=== PATIENT | female | born 1970 | race Caucasian/White ===

== ENCOUNTER → 2016-09-10 | Outpatient (CLI) | payer OTHER ==
[~2016-09-10] MED LIST: ALBU0.08 NEB; BENZ100 PO; NEXI40CA PO; PRED20 PO; SODI0.9N3 INH; VENTAER INH
[2016-09-10 09:05] LABS: HEMATOCRIT 40.4 % (35.0-46.0); MEAN CELL VOLUME 92.7 FL (80.0-100.0); MEAN CORPUSCULAR HEMOGLOBIN 31.4 PG (27.0-34.0); MEAN CORPUSCULAR HGB CONC 33.9 % (32.0-36.0); PLATELET COUNT 331 TH/MM3 (150-450); RED BLOOD COUNT 4.36 MIL/MM3 (4.00-5.30); REVIEW FLAG FINAL
[2016-09-10 13:32] LABS: ALKALINE PHOSPHATASE 49 U/L (45-117); ALT (GPT) 15 U/L (10-53); ANION GAP 7 MEQ/L (5-15); AST (GOT) 8 U/L (15-37); BICARBONATE 29.5 MEQ/L (21.0-32.0); BLOOD UREA NITROGEN 12 MG/DL (7-18); CHLORIDE 103 MEQ/L (98-107); GLOMERULAR FILTRATION RATE 99 ML/MIN (>89); GLUCOSE,FASTING 99 MG/DL (74-99); POTASSIUM 3.7 MEQ/L (3.5-5.1); SODIUM (NA) 139 MEQ/L (136-145); TOTAL BILIRUBIN ADULT 0.4 MG/DL (0.2-1.0)
== END ==
LOC: OLAB 08:17
PROVIDERS: ATTEND Family Medicine
DX: Z00.00 Encounter for general adult medical examination without abnormal findings (principal)
CPT/HCPCS: 80053; 84443; 85027

== ENCOUNTER 2017-01-02 17:29 | Emergency (ER) | payer OTHER ==
[~2017-01-02] VITALS: Ht 162.6 cm; Wt 47.5 kg
[~2017-01-02 17:29] MED LIST changes: -ALBU0.08 NEB; -BENZ100 PO; -PRED20 PO; -SODI0.9N3 INH; -VENTAER INH
[2017-01-02 17:35] VITALS: BP 148/69; PULSE 84; RESP 20; TEMP 98.7; O2SAT 93
--- NOTE | 2017-01-02 17:37 | PD ---
Physical Exam Date Seen by Provider: January 02, 2017 Time Seen by Provider: 17:35 Narrative Pt is a 46 year old female presenting to the ED with c/o palpitations and SOB, slight dizziness. Hx of SVT. She feels like there is pressure in her chest and her heart is "flipping around" in her chest. VSS, awaiting bed placement. MDM Supervised Visit with CATRACHITA: Concetta Cloud January 02, 2017 17:37
[2017-01-02] MEDS ORDERED: SODIUM CHLORIDE 0.9% FLUSH 10 ML FLUSH IVF PRN (18:30)
[2017-01-02 18:46] LABS: AUTOMATED NEUTROPHIL # 3.1 TH/MM3 (1.8-7.7); BASOPHIL # 0.1 TH/MM3 (0-0.2); BASOPHIL % 1.9 % (0.0-2.0); EOSINOPHIL # 0.1 TH/MM3 (0-0.4); EOSINOPHIL % 1.4 % (0.0-4.0); HEMO FLAGS DIFF FINAL; LYMPHOCYTE # 2.1 TH/MM3 (1.0-4.8); MEAN CELL VOLUME 94.3 FL (80.0-100.0); MEAN CORPUSCULAR HEMOGLOBIN 31.5 PG (27.0-34.0); MEAN CORPUSCULAR HGB CONC 33.4 % (32.0-36.0); MONO % 9.8 % (0.0-8.0); NEUT % 51.9 % (16.0-70.0); PLATELET COUNT 344 TH/MM3 (150-450); RED BLOOD COUNT 4.25 MIL/MM3 (4.00-5.30); RED CELL DISTRIBUTION WIDTH 13.3 % (11.6-17.2)
--- NOTE | 2017-01-02 18:47 | RADRPT ---
EXAM DATE/TIME: 01/02/2017 18:36 [place] COMPARISON: No previous studies available for comparison. INDICATIONS : Palpitations. MEDICAL HISTORY : None. SURGICAL HISTORY : Left thoracotomy. ENCOUNTER: Initial ACUITY: 1 day PAIN SCORE: 0/10 LOCATION: Bilateral chest FINDINGS: Mild scarring in the left lung base. There are some surgical clips in the left hilar region and sligh t superior retraction of the hilum. No evidence of focal infiltrate or effusion. Cardiac contours are satisfactory. Thoracic skeleton is intact. CONCLUSION: Previous left lung surgery. No acute disease. Supa Valenzuela MD on January 02, 2017 at 18:43 Board Certified Radiologist. This report was verified electronically.
[2017-01-02 19:16] LABS: ALKALINE PHOSPHATASE 52 U/L (45-117); ALT (GPT) 13 U/L (10-53); ANION GAP 8 MEQ/L (5-15); AST (GOT) 12 U/L (15-37); BICARBONATE 26.5 MEQ/L (21.0-32.0); BLOOD UREA NITROGEN 7 MG/DL (7-18); CHLORIDE 105 MEQ/L (98-107); FREE T4 0.92 NG/DL (0.76-1.46); GLOMERULAR FILTRATION RATE 107 ML/MIN (>89); MAGNESIUM 2.2 MG/DL (1.5-2.5); POTASSIUM 4.4 MEQ/L (3.5-5.1); SODIUM (NA) 139 MEQ/L (136-145); TOTAL BILIRUBIN ADULT 0.2 MG/DL (0.2-1.0)
[2017-01-02 19:17] LABS: CREATINE KINASE 54 U/L (26-192)
[2017-01-02 19:23] LABS: APTT (PATIENT) 29.6 SEC (24.3-30.1); INTERNATIONAL NORMALIZED RATIO 1.2 RATIO; PROTHROMBIN TIME - PATIENT 13.5 SEC (9.8-11.6)
[2017-01-02 19:38] VITALS: BP 170/83; PULSE 69; RESP 17; O2SAT 100
--- NOTE | 2017-01-02 20:07 | PD ---
HPI Chief Complaint: Cardiac Complaint Time Seen by Provider: 20:01 Travel History International Travel<30 days: No Contact w/Intl Traveler<30days: No Traveled to known affect area: No History of Present Illness HPI 38-year-old female that presents to the ED for evaluation of possible palpitations and dizziness. Patient has had this for the past 2 days. Per patient she is a history of PVCs. Per patient today got worse. Per patient she was working and she started having sensation of palpitations and PVCs as well as some slight shortness of breath as well as sensation to his Passout. Per patient this has since improved air per patient she was recently having cold -like symptoms that she's been taking some [id number] cold medicine and she feels that this exacerbated her symptoms. She denies any chest pain. No pressure. Per patient he just feels like a discomfort when she gets the PVCs. Per patient about 10 years ago she was worked up for it and she had a Holter that was positive for PVCs as well as ultrasound that was negative. Patient was told that she needed follow-up with no treatment was done at that time. She denies any abdominal pain. Nausea or vomiting. No urinary or bowel movement issues. She does follow with Dr. Ambriz. 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 No allergies to medication. She isn't taking anything for this. Again she has no pain. PFSH Past Medical History Cancer: No Cardiovascular Problems: Yes (PVC'S) Diabetes: No Diminished Hearing: No Endocrine: No Gastrointestinal Disorders: Yes (HX ABDOMINAL PAIN) Genitourinary: No Hepatitis: No Hiatal Hernia: No Hypertension: No Immune Disorder: No Musculoskeletal: No Neurologic: No Psychiatric: No Reproductive: No Respiratory: No Migraines: Yes Thyroid Disease: No Tetanus Vaccination: Unknown ?: Not LMP: 12/18/16 : 2 Para: 2 Tubal Ligation: Yes (1997) Past Surgical History Abdominal Surgery: No AICD: No Cardiac Surgery: No Section: Yes (X1) Ear Surgery: No Endocrine Surgery: No Eye Surgery: No Genitourinary Surgery: No Gynecologic Surgery: Yes (C.SECTION 1994 TUBELIGATION 1997.) Joint Replacement: No Oral Surgery: No Pacemaker: No Thoracic Surgery: Yes (THORACOTOMY 2004) Tonsillectomy: Yes Other Surgery: Yes Social History Alcohol Use: Yes (OCCASIONALLY) Tobacco Use: Yes (QUIT 12/29/16) Substance Use: No Allergies-Medications (Allergen,Severity, Reaction): Coded Allergies: No Known Allergies (Verified , 01/02/17) Reported Meds & Prescriptions Reported Meds & Active Scripts Active No Active Prescriptions or Reported Medications Review of Systems Except as stated in HPI: all other systems reviewed are Neg Physical Exam Narrative GENERAL: SKIN: Warm and dry. HEAD: Atraumatic. Normocephalic. EYES: Pupils equal and round. No scleral icterus. No injection or drainage. ENT: No nasal bleeding or discharge. Mucous membranes pink and moist. Tongue is midline. No uvula deviation. NECK: Trachea midline. No JVD. CARDIOVASCULAR: Regular rate and rhythm. No murmurs, S3, S4. RESPIRATORY: No accessory muscle use. Clear to auscultation. Breath sounds equal bilaterally. GASTROINTESTINAL: Abdomen soft, non-tender, nondistended. Hepatic and splenic margins not palpable. MUSCULOSKELETAL: Extremities without clubbing, cyanosis, or edema. No obvious deformities. Full range of motion of the upper and lower extremities bilaterally. 2+ pulses bilaterally. NEUROLOGICAL: Awake and alert. No obvious cranial nerve deficits. Motor grossly within normal limits. Five out of 5 muscle strength in the arms and legs. Normal speech. PSYCHIATRIC: Appropriate mood and affect; insight and judgment normal. Data Data Last Documented VS Vital Signs Date Time Temp Pulse Resp B/P Pulse Ox O2 Delivery O2 Flow Rate FiO2 01/02/17 19:38 69 17 170/83 100 Room Air 01/02/17 17:35 98.7 Orders Electrocardiogram (01/02/17 ) Electrocardiogram (01/02/17 18:20) Ckmb (Isoenzyme) Profile (01/02/17 18:20) Complete Blood Count With Diff (01/02/17 18:20) Comprehensive Metabolic Panel (01/02/17 18:20) Magnesium (Mg) (01/02/17 18:20) Prothrombin Time / Inr (Pt) (01/02/17 18:20) Act Partial Throm Time (Ptt) (01/02/17 18:20) Troponin I (01/02/17 18:20) Iv Access Insert/Monitor (01/02/17 18:20) Sodium Chloride 0.9% Flush (Ns Flush) (01/02/17 18:30) Chest, Pa & Lat (01/02/17 18:20) Thyroid Stimulating Hormone (01/02/17 18:20) Free Thyroxine (T4) (01/02/17 18:20) Holter Monitor Recording (01/02/17 ) Labs Laboratory Tests Test 01/02/17 18:30 White Blood Count 6.0 TH/MM3 Red Blood Count 4.25 MIL/MM3 Hemoglobin 13.4 GM/DL Hematocrit 40.0 % Mean Corpuscular Volume 94.3 FL Mean Corpuscular Hemoglobin 31.5 PG Mean Corpuscular Hemoglobin 33.4 % Concent Red Cell Distribution Width 13.3 % Platelet Count 344 TH/MM3 Mean Platelet Volume 8.1 FL Neutrophils (%) (Auto) 51.9 % Lymphocytes (%) (Auto) 35.0 % Monocytes (%) (Auto) 9.8 % Eosinophils (%) (Auto) 1.4 % Basophils (%) (Auto) 1.9 % Neutrophils # (Auto) 3.1 TH/MM3 Lymphocytes # (Auto) 2.1 TH/MM3 Monocytes # (Auto) 0.6 TH/MM3 Eosinophils # (Auto) 0.1 TH/MM3 Basophils # (Auto) 0.1 TH/MM3 CBC Comment DIFF FINAL Differential Comment Prothrombin Time 13.5 SEC Prothromb Time International 1.2 RATIO Ratio Activated Partial 29.6 SEC Thromboplast Time Sodium Level 139 MEQ/L Potassium Level 4.4 MEQ/L Chloride Level 105 MEQ/L Carbon Dioxide Level 26.5 MEQ/L Anion Gap 8 MEQ/L Blood Urea Nitrogen 7 MG/DL Creatinine 0.60 MG/DL Estimat Glomerular Filtration 107 ML/MIN Rate Random Glucose 107 MG/DL Calcium Level 8.5 MG/DL Magnesium Level 2.2 MG/DL Total Bilirubin 0.2 MG/DL Aspartate Amino Transf 12 U/L (AST/SGOT) Alanine Aminotransferase 13 U/L (ALT/SGPT) Alkaline Phosphatase 52 U/L Total Creatine Kinase 54 U/L Troponin I LESS THAN 0.02 NG/ML Total Protein 8.0 GM/DL Albumin 4.3 GM/DL Free Thyroxine 0.92 NG/DL Thyroid Stimulating Hormone 3.950 uIU/ML 3rd Gen [facility] Medical Decision Making Medical Screen Exam Complete: Yes Emergency Medical Condition: Yes Medical Record Reviewed: Yes Interpretation(s) EKG shows sinus rhythm with no sign of acute ischemia or arrhythmia. No obvious PVCs or deformities noted. Read by me and attending. Troponin and CK-MB negative. Free T4 within normal limits. Free T3 slightly elevated CBC & BMP Diagram 01/02/17 18:30 LFTS WNL Last Impressions Chest X-Ray 01/02/17 1820 Signed Impressions: Service Date/Time: , January 02, 2017 18:36 - CONCLUSION: Previous left lung surgery. No acute disease. Supa Valenzuela MD Differential Diagnosis PVCs versus palpitations versus chest pain versus ACS versus heart disease versus normal exam Narrative Course 38-year-old female that presents to the ED for evaluation of possible PVCs. Patient was properly examined and was found to have signs and symptoms of unclear etiology. Labs and imaging show essentially unremarkable. Patient has had no PVCs well in the ER. She is complaining is symptomatic at this time. Labs and imaging were essentially unremarkable here. My attending Dr. Marie evaluated the patient with me and agrees with plan. Patient will be sent home with Holter monitor and close follow-up with cardiology as well as PCP. Patient agrees with this plan. Patient was told to avoid using cold medication. See ED for worsening symptoms. Follow with PCP. All questions were answered to the best of our ability. Diagnosis Primary Impression: Symptomatic PVCs Referrals: Jazmine Horvath MD Patient Instructions: General Instructions Additional Instructions: F/u with PCP. See ED if worsening symptoms. See [facility]. Avoid OTD cold meds. Med/Other Pt SpecificInfo: No Change to Meds Scripts No Active Prescriptions or Reported Meds Disposition: 01 DISCHARGE HOME Condition: Stable Branden Valle January 02, 2017 20:07
[2017-01-02 20:58] VITALS: BP 150/69
--- NOTE | 2017-01-04 13:34 | EKG ---
Date Performed: 01/02/2017 Time Performed: 17:49:47 PTAGE: 46 years EKG: Sinus rhythm Low QRS voltage in precordial leads Normal ECG NO PREVIOUS TRACING DOCTOR: Cris Cartwright Interpretating Date/Time 01/04/2017 14:22:30
--- NOTE | 2017-01-04 14:21 | HM ---
Date Performed: 01/02/2017 Time Performed: 20:45:00 HOOKUP DATE: 01/02/17 08:45:00 PM [facility] ANALYSIS START TIME: 01/02/2017 8:50:00 PM ANALYSIS END TIME: 01/03/2017 8:28:37 PM PATIENT AGE: 46 PATIENT HEIGHT: 64 PATIENT WEIGHT: 104 DRUG LIST PATIENT DIAGNOSIS: Palpitations TEST NARRATIVE: The patient's average heart rate was 79 BPM. Heart rates greater than 120 B PM were noted < 1% of the time. Heart rates less than 50 BPM were noted < 1% of the time. No jim ses exceeding 2.0 seconds were noted. 7769 ventricular ectopics, which represented 7% of the tota l beat count, were noted. The highest ventricular ectopic frequency occurred from 12:00 PM to 01:00 PM Fri. During this time 1181 VE(s) occurred. Ventricular ectopics were observed as 7762 isolated b eat(s) and as 2 couplet(s). No runs were noted. Some of the ventricular beats occurred in bigeminal cycles. No supraventricular ectopics were noted. No episodes of ST depression (defined as -1 .0 mm or more) were noted in channel 1. No episodes of ST depression (defined as -1.0 mm or more) we re noted in channel 2. No episodes of ST depression (defined as -1.0 mm or more) were noted in chann el 3. Patient complains of palpitations throughout the recording. TEST INTERPRETATION: The patient underwent a Holter monitor to evaluare clinical complaints of p alpitations. Only the expanded tracings are subject to interpretation. Expanded tracings show the p atient to be in Sinus rhythm throughout the monitoring session with the sinus rate varying from 49 bpm to 129 bpm. The patient h as relatively frequent unifocal PVCs with a total of 7,762 during the monitoring session. Rare ventr icular couplets are noted. Rare PACs are noted but no supraventricular tachycardia is printed. The patient does complain of frequent palpitations in the diary and the complaints appear to correlate wi th episodes of unifocal premature ventricular contractions. CONCLUSIONS: 1) Holter monitor showing no rmal sinus rhythm with frequent unifocal PVCs 2) No significant tachy arrhythmias or sandra arrhythmia s 3) No complex ventricular ectopy 4) The patient's clinical palpitations appear to correlate with he r premature ventricular contractions. Signed by : Cris Cartwright
[2017-01-09] MEDS ORDERED: SODI0.9N3 INH (18:36)
[2017-01-09] MEDS ORDERED: ALBU0.08 NEB (18:36)
[2017-01-09] MEDS ORDERED: BENZ100 PO (18:43)
[2017-01-09] MEDS ORDERED: VENTAER INH (18:43)
[2017-01-09] MEDS ORDERED: PRED20 PO (18:43)
== END 2017-01-02 21:00 | disposition home or self-care (01) ==
LOC: NEPE 17:29
DX: I49.3 Ventricular premature depolarization (principal)
CPT/HCPCS: 71020; 80053; 82550; 83735; 84439; 84443; 84484; 85025; 85610; 85730; 93005; 93225; 93226

== ENCOUNTER → 2017-01-27 | Outpatient (CLI) | payer OTHER ==
[~2017-01-27] MED LIST changes: +BENZ100 PO; -NEXI40CA PO; +PRED20 PO; +VENTAER INH
[2017-01-27 15:27] LABS: BACTERIA, URINE RARE /hpf; BLOOD, URINE NEG (NEG); COMMENT (UR) CULT NOT INDICATED; CULTURE IF INDICATED CULT NOT INDICATED; GLUCOSE,URINE NEG (NEG); KETONE, URINE NEG (NEG); MUCUS URINE FEW /lpf (OCC); NITRITE,URINE NEG (NEG); SQUAMOUS EPITHELIAL CELL URINE 1 /hpf (0-5); URINE COLOR LIGHT-YELLOW (YELLW/STRAW)
== END ==
LOC: CLAB 15:00
PROVIDERS: ATTEND Obstetrics & Gynecology
DX: N39.0 Urinary tract infection, site not specified (principal)
CPT/HCPCS: 81001

== ENCOUNTER 2017-02-27 11:27 | Emergency (ER) | payer OTHER ==
[~2017-02-27] VITALS: Ht 162.6 cm; Wt 47.2 kg
[2017-02-27 11:28] VITALS: BP 131/68; PULSE 98; RESP 20; TEMP 98; O2SAT 97
[2017-02-27 12:03] LABS: AUTOMATED NEUTROPHIL # 9.1 TH/MM3 (1.8-7.7); BASOPHIL % 0.4 % (0.0-2.0); EOSINOPHIL # 0.1 TH/MM3 (0-0.4); EOSINOPHIL % 0.6 % (0.0-4.0); HEMATOCRIT 42.5 % (35.0-46.0); HEMO FLAGS DIFF FINAL; LYMPH % 12.1 % (9.0-44.0); LYMPHOCYTE # 1.4 TH/MM3 (1.0-4.8); MEAN CELL VOLUME 91.7 FL (80.0-100.0); MEAN CORPUSCULAR HEMOGLOBIN 31.4 PG (27.0-34.0); MEAN CORPUSCULAR HGB CONC 34.2 % (32.0-36.0); MONO % 9.5 % (0.0-8.0); NEUT % 77.4 % (16.0-70.0); PLATELET COUNT 342 TH/MM3 (150-450); RED BLOOD COUNT 4.64 MIL/MM3 (4.00-5.30); RED CELL DISTRIBUTION WIDTH 12.5 % (11.6-17.2); WHITE BLOOD COUNT 11.7 TH/MM3 (4.0-11.0)
[2017-02-27 12:23] LABS: BACTERIA, URINE MOD /hpf; BLOOD, URINE NEG (NEG); COMMENT (UR) CULTURE INDICATED; CULTURE IF INDICATED CULTURE INDICATED; GLUCOSE,URINE NEG (NEG); KETONE, URINE NEG (NEG); NITRITE,URINE NEG (NEG); PH, URINE 5.5 (5.0-8.5); SQUAMOUS EPITHELIAL CELL URINE 3 /hpf (0-5); URINE COLOR LIGHT-YELLOW (YELLW/STRAW)
[2017-02-27 12:26] LABS: ALT (GPT) 15 U/L (10-53); ANION GAP 3 MEQ/L (5-15); AST (GOT) 10 U/L (15-37); BICARBONATE 32.7 MEQ/L (21.0-32.0); BLOOD UREA NITROGEN 9 MG/DL (7-18); CHLORIDE 102 MEQ/L (98-107); GLOMERULAR FILTRATION RATE 120 ML/MIN (>89); POTASSIUM 4.1 MEQ/L (3.5-5.1); SODIUM (NA) 138 MEQ/L (136-145)
[2017-02-27 12:29] LABS: ALKALINE PHOSPHATASE 59 U/L (45-117); TOTAL BILIRUBIN ADULT 0.7 MG/DL (0.2-1.0)
--- NOTE | 2017-02-27 13:21 | PD ---
HPI Chief Complaint: Complaint Time Seen by Provider: 12:12 Travel History International Travel<30 days: No Contact w/Intl Traveler<30days: No Traveled to known affect area: No History of Present Illness HPI The patient was seen and examined in the presence of the nurse. This patient complains of pelvic and suprapubic pressure. She feels like there is "razor blades" when she urinates. She did note some hematuria. She is not having flank pain. Had a temperature of 99 but no documented fever. Symptoms severity is moderate. Duration is one full month. She had a urinalysis a month ago that was normal she reports. PFSH Past Medical History Cancer: No Cardiovascular Problems: Yes Diabetes: No Diminished Hearing: No Endocrine: No Gastrointestinal Disorders: Yes (HX ABDOMINAL PAIN) Genitourinary: No Hepatitis: No Hiatal Hernia: No Hypertension: No Immune Disorder: No Musculoskeletal: No Neurologic: No Psychiatric: No Reproductive: No Respiratory: Yes (PNEUMOTHORAX ) Immunizations Current: No Migraines: Yes Thyroid Disease: No Tetanus Vaccination: Unknown Influenza Vaccination: Yes ?: Not LMP: 01/05/17 : 2 Para: 2 Tubal Ligation: Yes (1997) Past Surgical History Abdominal Surgery: No AICD: No Cardiac Surgery: No Section: Yes (X1) Ear Surgery: No Endocrine Surgery: No Eye Surgery: No Genitourinary Surgery: No Gynecologic Surgery: Yes (C.SECTION 1994 TUBELIGATION 1997.) Joint Replacement: No Oral Surgery: No Pacemaker: No Thoracic Surgery: Yes (THORACOTOMY 2004) Tonsillectomy: Yes Other Surgery: Yes Social History Alcohol Use: Yes (OCCASIONALLY) Tobacco Use: Yes (QUIT 12/29/16) Substance Use: No Allergies-Medications (Allergen,Severity, Reaction): Coded Allergies: No Known Allergies (Verified , 02/27/17) Reported Meds & Prescriptions Reported Meds & Active Scripts Active Ventolin Hfa 18 GM Inh (Albuterol Sulfate) 90 Mcg/Act Aer 2 Puff INH Q4-6H PRN Review of Systems General / Constitutional: No: Fever Eyes: No: Visual changes HENT: No: Headaches Cardiovascular: No: Chest Pain or Discomfort Respiratory: No: Shortness of Breath Gastrointestinal: No: Abdominal Pain Genitourinary: Positive: Dysuria, Hematuria, Pelvic Pain Musculoskeletal: No: Pain Skin: No Rash Neurologic: No: Weakness Psychiatric: No: Depression Endocrine: No: Polydipsia Hematologic/Lymphatic: No: Easy Bruising Physical Exam Narrative GENERAL: Well-nourished, well-developed patient in no apparent distress. SKIN: Focused skin assessment reveals no rash and nodules. Skin is Warm and dry. HEAD: Atraumatic. Normocephalic. EYES: Pupils equal and round. No scleral icterus. No injection or drainage. ENT: No nasal bleeding or discharge. Mucous membranes pink and moist. NECK: Trachea midline. No JVD. CARDIOVASCULAR: Regular rate and rhythm. No murmur appreciated. RESPIRATORY: No accessory muscle use. Clear to auscultation. Breath sounds equal bilaterally. GASTROINTESTINAL: Abdomen soft, non-tender, nondistended. Hepatic and splenic margins not palpable. MUSCULOSKELETAL: No obvious deformities. No clubbing. No cyanosis. No edema. NEUROLOGICAL: Awake and alert. No obvious cranial nerve deficits. Motor grossly within normal limits. Normal speech. PSYCHIATRIC: Appropriate mood and affect; insight and judgment normal. Pelvic: Some minor white discharge. Wet prep was obtained. No cervical motion tenderness. GC chlamydia obtained. There is some vague uterine area tenderness Data Data Last Documented VS Vital Signs Date Time Temp Pulse Resp B/P Pulse Ox O2 Delivery O2 Flow Rate FiO2 02/27/17 11:28 98.0 98 20 131/68 97 Room Air Orders Complete Blood Count With Diff (02/27/17 11:38) Comprehensive Metabolic Panel (02/27/17 11:38) Urinalysis - C+S If Indicated (02/27/17 11:38) Ed Urine Pregnancytest Poc (02/27/17 11:38) Urine Culture (02/27/17 11:45) Wet Prep Profile (02/27/17 12:38) Gc And Chlamydia Pcr (02/27/17 12:38) Labs Laboratory Tests Test 02/27/17 02/27/17 02/27/17 11:45 11:50 12:47 Urine Color LIGHT-YELLOW Urine Turbidity CLEAR Urine pH 5.5 Urine Specific [place] 1.007 Urine Protein NEG mg/dL Urine Glucose (UA) NEG mg/dL Urine Ketones NEG mg/dL Urine Occult Blood NEG Urine Nitrite NEG Urine Bilirubin NEG Urine Urobilinogen LESS THAN 2.0 MG/DL Urine Leukocyte Esterase SMALL Urine RBC 1 /hpf Urine WBC 2 /hpf Urine Squamous Epithelial 3 /hpf Cells Urine Bacteria MOD /hpf Microscopic Urinalysis Comment CULTURE INDICATED White Blood Count 11.7 TH/MM3 Red Blood Count 4.64 MIL/MM3 Hemoglobin 14.5 GM/DL Hematocrit 42.5 % Mean Corpuscular Volume 91.7 FL Mean Corpuscular Hemoglobin 31.4 PG Mean Corpuscular Hemoglobin 34.2 % Concent Red Cell Distribution Width 12.5 % Platelet Count 342 TH/MM3 Mean Platelet Volume 8.0 FL Neutrophils (%) (Auto) 77.4 % Lymphocytes (%) (Auto) 12.1 % Monocytes (%) (Auto) 9.5 % Eosinophils (%) (Auto) 0.6 % Basophils (%) (Auto) 0.4 % Neutrophils # (Auto) 9.1 TH/MM3 Lymphocytes # (Auto) 1.4 TH/MM3 Monocytes # (Auto) 1.1 TH/MM3 Eosinophils # (Auto) 0.1 TH/MM3 Basophils # (Auto) 0.0 TH/MM3 CBC Comment DIFF FINAL Differential Comment Sodium Level 138 MEQ/L Potassium Level 4.1 MEQ/L Chloride Level 102 MEQ/L Carbon Dioxide Level 32.7 MEQ/L Anion Gap 3 MEQ/L Blood Urea Nitrogen 9 MG/DL Creatinine 0.54 MG/DL Estimat Glomerular Filtration 120 ML/MIN Rate Random Glucose 103 MG/DL Calcium Level 9.2 MG/DL Total Bilirubin 0.7 MG/DL Aspartate Amino Transf 10 U/L (AST/SGOT) Alanine Aminotransferase 15 U/L (ALT/SGPT) Alkaline Phosphatase 59 U/L Total Protein 8.6 GM/DL Albumin 4.3 GM/DL Clue Cells (Wet Prep) NONE SEEN Vaginal Trichomonas (Wet Prep) NONE SEEN Vaginal Yeast (Wet Prep) NONE SEEN MDM Medical Decision Making Medical Screen Exam Complete: Yes Emergency Medical Condition: Yes Medical Record Reviewed: Yes Differential Diagnosis UTI, PID, ectopic , interstitial cystitis Narrative Course I have reviewed the patient's electronic medical record. IV placed CBC is normal Metabolic profile is normal LFTs are normal. urinalysis shows moderate bacteria but no significant pyuria. It will be cultured Wet prep is negative GC chlamydia sent Urine is negative Had a lengthy discussion with patient and . We discussed interstitial cystitis at length. May stock turner that she has that. I can't formally diagnose that in the ER. Would require urology follow-up and cystoscopy. I offered to start her on the low dose nightly amitriptyline which is recommended first-line therapy So far she has been noncommittal and not eager to start that. Stable for outpatient follow-up. Diagnosis Primary Impression: Dysuria Additional Impression: Pelvic pain in female Additional Instructions: The patient was advised to follow up with their physician and urologist and return if they worsen. Med/Other Pt SpecificInfo: Other Disposition: 01 DISCHARGE HOME Condition: Stable Angus Leblanc MD Feb 27, 2017 13:21
[2017-02-27 17:21] LABS: CHLAMYDIA PCR NOT DETECTED (NOT DETECT); NEISSERIA PCR NOT DETECTED (NOT DETECT)
== END 2017-02-27 14:35 | disposition home or self-care (01) ==
LOC: NEPD 11:27
DX: R10.2 Pelvic and perineal pain (principal); R30.0 Dysuria; B96.89 Other specified bacterial agents as the cause of diseases classified elsewhere
CPT/HCPCS: 80053; 81001; 84703; 85025; 87086; 87210; 87491; 87591; 99283

== ENCOUNTER → 2017-09-15 | Outpatient (CLI) | payer OTHER ==
[~2017-09-15] VITALS: Ht 162.6 cm; Wt 42.3 kg
[~2017-09-15] MED LIST changes: -BENZ100 PO; +CHLORHEXIDINE GLUCONATE 2 % 1 PACK (2 CLOTHS) TOPICAL PRN; +DEXTROSE 5% IN WATE 1000ML INJ 1,000 ML IV SCH; +LACTATED RINGER'S 1000 ML IV PRN; +LIDOCAINE HCL 1% PF 5 ML SYRINGE OTHER ONE; +METOPROLOL TARTRATE 25 MG TAB PO PRN; +POVIDONE IODINE 5% (ANTISEPSIS KIT) 4 APPLICATIONS EACH NARE PRN; -PRED20 PO; +PROPOFOL 200 MG/20 ML AMP IV ONE; +SODIUM CHLORID 0.9% 500 ML IV PRN
--- NOTE | 2017-09-15 13:40 | GIPROC ---
[facility] [address] [facility]. [facility], [address] COLONOSCOPY PROCEDURE REPORT EXAM DATE: 09/15/2017 PATIENT NAME: Gela Martinez MR #: [id number] BIRTHDATE: 1970 ENDOSCOPIST: Gay Belcher MD ORDER #: [id number] AUTOMATION CLERK: River York and Amanda Delcid STATUS: outpatient INDICATIONS: The patient is a 47 yr old female here for a colonoscopy due to abdominal pain and screening. PROCEDURE PERFORMED: Total Colonoscopy with polypectomy with biopsy forceps x 3 MEDICATIONS: See Anesthesia Record ESTIMATED BLOOD LOSS: None CONSENT: The patient understands the risks and benefits of the procedure and understands that these risks include, but are not limited to: sedation, allergic reaction, infection, perforation and/or bleeding. Alternative means of evaluation and treatment include, among others: physical exam, x-rays, and/or surgical intervention. The patient elects to proceed with this endoscopic procedure. DESCRIPTION OF PROCEDURE: checked for proper function. Hand hygiene and appropriate measures for infection prevention was taken. After the risks, benefits and alternatives of the procedure were thoroughly explained, Informed consent was verified, confirmed and timeout was successfully executed by the treatment team. A digital exam was performed. The endoscope was introduced through the anus and advanced to the cecum, which was identified by the appendiceal orifice, tri-radiate valve, and ileocecal valve. The prep quality was good . The instrument was advanced through the valve. The instrument was then slowly withdrawn as the colon was fully examined. There were no mucosal abnormalities noted within the terminal ileum, the cecum, or the ascending colon. In the distal transverse colon a 2-3 mm polyp was removed using the biopsy forceps. There were no mucosal abnormalities noted in the descending colon. Moderate diverticulosis was noted in the sigmoid. Two addition 2-3 mm polyps were removed from the rectum. The scope was then completely withdrawn from the patient and the procedure terminated. ADVERSE EVENTS: There were no complications. WITHDRAWL TIME: 10 minutes DEGREE OF DIFFICULTY: IMPRESSIONS: Normal Colon RECOMMENDATIONS: Await biopsy PATIENT CONDITION: Stable DISPOSITION: Home RECALL: 5 years Gay Belcher MD eSigned: Gay Belcher MD 09/15/2017 1:40 PM cc: Dr. Navarro PATIENT NAME: Gela Martinez MR#: [id number]
[2017-09-15 14:14] VITALS: BP 138/63; PULSE 65; RESP 16; O2SAT 100
== END ==
LOC: HSDC 11:05
PROVIDERS: ATTEND Colon & Rectal Surgery
DX: Z12.11 Encounter for screening for malignant neoplasm of colon (principal); K62.1 Rectal polyp; K63.5 Polyp of colon; K57.30 Diverticulosis of large intestine without perforation or abscess without bleeding; Z87.09 Personal history of other diseases of the respiratory system; Z87.891 Personal history of nicotine dependence
CPT/HCPCS: 00812; 45380; 88305; J7120

== ENCOUNTER → 2017-09-26 | Outpatient (CLI) | payer OTHER ==
[~2017-09-26] MED LIST changes: -CHLORHEXIDINE GLUCONATE 2 % 1 PACK (2 CLOTHS) TOPICAL PRN; -DEXTROSE 5% IN WATE 1000ML INJ 1,000 ML IV SCH; -LACTATED RINGER'S 1000 ML IV PRN; -LIDOCAINE HCL 1% PF 5 ML SYRINGE OTHER ONE; -METOPROLOL TARTRATE 25 MG TAB PO PRN; -POVIDONE IODINE 5% (ANTISEPSIS KIT) 4 APPLICATIONS EACH NARE PRN; -PROPOFOL 200 MG/20 ML AMP IV ONE; -SODIUM CHLORID 0.9% 500 ML IV PRN
[2017-09-26 09:00] LABS: AUTOMATED NEUTROPHIL # 2.6 TH/MM3 (1.8-7.7); BASOPHIL # 0.1 TH/MM3 (0-0.2); BASOPHIL % 1.2 % (0.0-2.0); EOSINOPHIL # 0.2 TH/MM3 (0-0.4); EOSINOPHIL % 3.5 % (0.0-4.0); HEMATOCRIT 39.2 % (35.0-46.0); HEMOGLOBIN 13.6 GM/DL (11.6-15.3); LYMPH % 39.6 % (9.0-44.0); LYMPHOCYTE # 2.2 TH/MM3 (1.0-4.8); MEAN CELL VOLUME 92.7 FL (80.0-100.0); MEAN CORPUSCULAR HEMOGLOBIN 32.3 PG (27.0-34.0); MEAN CORPUSCULAR HGB CONC 34.8 % (32.0-36.0); MEAN PLATELET VOLUME 8.6 FL (7.0-11.0); MONO % 7.2 % (0.0-8.0); MONOCYTE # 0.4 TH/MM3 (0-0.9); NEUT % 48.5 % (16.0-70.0); PLATELET COUNT 299 TH/MM3 (150-450); RED BLOOD COUNT 4.23 MIL/MM3 (4.00-5.30); RED CELL DISTRIBUTION WIDTH 13.2 % (11.6-17.2); WHITE BLOOD COUNT 5.5 TH/MM3 (4.0-11.0)
[2017-09-26 12:53] LABS: AST (GOT) 14 U/L (15-37); BICARBONATE 29.2 MEQ/L (21.0-32.0); BLOOD UREA NITROGEN 12 MG/DL (7-18); CALCIUM 8.7 MG/DL (8.5-10.1); CHLORIDE 104 MEQ/L (98-107); CREATININE 0.59 MG/DL (0.50-1.00); GLOMERULAR FILTRATION RATE 108 ML/MIN (>89); GLUCOSE,FASTING 89 MG/DL (74-99); SODIUM (NA) 140 MEQ/L (136-145)
[2017-09-26 12:54] LABS: ALT (GPT) 19 U/L (10-53); CHOLESTEROL 141 MG/DL (120-200); THYROXINE (T4) 8.7 MCG/DL (4.8-13.9)
[2017-09-26 13:06] LABS: ALKALINE PHOSPHATASE 53 U/L (45-117); CHOLESTEROL/ HDL RATIO 2.44 RATIO; HDL CHOLESTEROL 57.7 MG/DL (40.0-60.0); LDL CHOLESTEROL 69 MG/DL (0-99); TOTAL BILIRUBIN ADULT 0.6 MG/DL (0.2-1.0); TOTAL PROTEIN 7.4 GM/DL (6.4-8.2); TRIGLYCERIDES 73 MG/DL (42-150)
== END ==
LOC: OLAB 07:54
PROVIDERS: ATTEND Family Medicine
DX: E03.9 Hypothyroidism, unspecified (principal); R10.9 Unspecified abdominal pain
CPT/HCPCS: 80053; 80061; 84436; 84443; 85025; 85652